=== PATIENT | male | born 1970 | race Caucasian/White ===

== ENCOUNTER → 2016-04-04 | Outpatient (CLI) | payer OTHER ==
--- NOTE | 2016-04-04 15:38 | DX ---
Foot 2 Views Left History: Metatarsal pain. Evaluate for fracture. History of gout. Findings: Osseous structures are intact without fracture. No periosteal thickening is seen or stress fracture response. There are no erosions. Joint spaces are normal. Soft tissues are normal. Impression: Normal foot series.
== END ==
LOC: BMCIMAGING 13:57
PROVIDERS: ATTEND Internal Medicine Rheumatology
DX: M77.42 Metatarsalgia, left foot (principal)

== ENCOUNTER → 2016-06-09 | Outpatient (CLI) | payer OTHER | LOC: BMCIMAGING 13:59 | PROVIDERS: ATTEND Family Medicine | DX: S82.202A Unspecified fracture of shaft of left tibia, initial encounter for closed fracture (principal) ==